=== PATIENT | female | born 1970 | race African-American/Black ===

== ENCOUNTER 2023-09-03 21:05 | Emergency (ER) | payer OTHER, MEDICAID ==
[~2023-09-03] VITALS: Ht 172.7 cm; Wt 97.7 kg
--- NOTE | 2023-09-03 23:36 | NUR ---
PATIENT GIVEN SPECIMEN CUP TO COLLECT STOOL SAMPLE, PATIENT WAS UNSUCCESSFUL AND "DIDNT FEEL LIKE SHE HAD TO GO AT THE MOMENT".
[2023-09-04 00:11] LABS: URINE HCG NEGATIVE (NEG)
[2023-09-04 00:12] LABS: BILIRUBIN,URINE NEGATIVE (Neg); CLARITY,URINE SLIGHTLY CLOUDY (Clear); COLOR,URINE YELLOW (Yellow); GLUCOSE, URINE NEGATIVE (Neg); KETONES,URINE NEGATIVE (Neg); LEUKOCYTE ESTERASE ,URINE SMALL (Neg); NITRITES, URINE NEGATIVE (Neg); OCCULT BLOOD,URINE NEGATIVE (Neg); PROTEIN,URINE NEGATIVE (Neg)
[2023-09-04 00:15] LABS: UA COLLECTION TYPE CLN CATCH MIDSTREAM
[2023-09-04 00:15] LABS: BASOPHILS % (AUTO) 0.4 % (0-1); EOSINOPHILS % (AUTO) 0.8 % (0-6); HEMATOCRIT 35.6 % (35.0-45.0); HEMOGLOBIN 11.7 g/dl (12.0-16.0); LYMPHOCYTES # (AUTO) 3.3 X10'3 (1.1-4.8); LYMPHOCYTES % (AUTO) 55.5 % (21-51); MEAN CORPUSCULAR HEMOGLOBIN 25.3 PG (27.0-31.0); MEAN CORPUSCULAR HGB CONC 32.8 g/dL (33.0-36.5); MEAN CORPUSCULAR VOLUME 77.2 FL (78-98); MONOCYTES # (AUTO) 0.5 X10'3 (0-0.9); MONOCYTES % (AUTO) 8.4 % (2-12); NEUTROPHILS # (AUTO) 2.1 X10'3 (1.8-7.7); NEUTROPHILS % (AUTO) 34.9 % (42-75); PLATELET COUNT 238 X10'3 (140-440); RED BLOOD COUNT 4.61 X10'6 (4.20-5.60); RED CELL DISTRIBUTION WIDTH 16.4 % (11.5-14.5); WHITE BLOOD COUNT 5.9 X10'3 (4.5-11.0)
[2023-09-04 00:24] LABS: RBC,URINE 0-2 /HPF (0-2); WBC,URINE 20-30 /HPF (0-4)
[2023-09-04 00:25] LABS: BACTERIA,URINE 2+ /HPF (Neg); SQUAMOUS EPITHELIAL CELL,UR FEW /LPF (FEW); TRANSITIONAL EPI CELLS,URINE FEW /HPF; WBC CLUMPS,URINE FEW /HPF (NEGATIVE)
[2023-09-04 00:28] LABS: ALANINE AMINOTRANSFERASE 42 U/L (12-78); ALBUMIN 3.3 G/DL (3.4-5.0); ALBUMIN/GLOBULIN RATIO 0.8 (1.1-1.5); ALKALINE PHOSPHATASE 103 IU/L (46-116); ANION GAP 11 (8-16); ASPARTATE AMINO TRANSFERASE 23 U/L (10-37); BILIRUBIN,TOTAL 0.3 MG/DL (0.1-1.0); BLOOD UREA NITROGEN 10 MG/DL (7-18); BUN/CREATININE RATIO 11.8 (10.0-20.0); CALCIUM 8.9 MG/DL (8.5-10.1); CHLORIDE 105 MMOL/L (99-107); CREATININE 0.85 MG/DL (0.40-0.90); GLUCOSE 95 MG/DL (70-104); POTASSIUM 3.5 MMOL/L (3.5-5.1); SODIUM 142 MMOL/L (135-145); TOTAL CARBON DIOXIDE 26.4 MMOL/L (24-32); TOTAL PROTEIN 7.4 G/DL (6.4-8.2); eCRCL 85 ML/MIN; eGFR 73 ML/MIN
[2023-09-04] MEDS ORDERED: ondansetron 4mg rapidly disintigrating tab PO ONE (00:30)
[2023-09-04 00:31] LABS: LIPASE 58 U/L (16-77)
[2023-09-04 00:33] VITALS: TEMP 98
[2023-09-04] MEDS ORDERED: loperamide 2mg capsule PO ONE (00:35)
[2023-09-04 01:06] LABS: ANISOCYTOSIS 1+; PLATELET ESTIMATE NORMAL; TOTAL CELLS COUNTED 100
[2023-09-04 01:07] LABS: MICROCYTOSIS 1+
[2023-09-04 01:08] LABS: SMUDGE CELLS 1+
[2023-09-04 02:28] LABS: D-DIMER < 0.19 MG/L FEU (0-0.50)
[2023-09-04] MEDS ORDERED: ONDA8TAB13 PO (02:35)
[2023-09-04] MEDS ORDERED: proCHLORperazine 10mg tablet PO ONE (02:35)
[2023-09-04] MEDS ORDERED: LOPE2CAP PO (02:35)
[2023-09-04] MEDS ORDERED: acetaminophen 325mg tablet PO ONE (02:35)
[2023-09-04 03:03] VITALS: BP 134/99; PULSE 56; RESP 16; O2SAT 100
== END 2023-09-04 03:05 | disposition home or self-care (01) ==
LOC: EDBD 21:08 → ER 21:08
DX: K52.89 Other specified noninfective gastroenteritis and colitis (principal)
CPT/HCPCS: 36415; 80053; 81001; 81025; 83690; 84145; 85007; 85025; 85379; 86885; 86900; 86901; 87088; 99284; Q0164; 81003; 87077; 87186